=== PATIENT | male | born 1980 | race Caucasian/White ===

== ENCOUNTER 2023-10-09 07:35 | Emergency (ER) | payer OTHER ==
[~2023-10-09] VITALS: Ht 188 cm; Wt 93.0 kg
[2023-10-09] MEDS ORDERED: TRAZ-182 PO (08:17)
[2023-10-09 08:24] VITALS: BP 141/89; TEMP 98.4; O2SAT 100
== END 2023-10-09 08:24 | disposition home or self-care (01) ==
LOC: ER 07:41
DX: F13.10 Sedative, hypnotic or anxiolytic abuse, uncomplicated (principal)